=== PATIENT | male | born 1990 | race African-American/Black ===

== ENCOUNTER 2020-04-22 09:08 | Emergency (ER) | payer OTHER ==
[~2020-04-22] VITALS: Ht 182.9 cm; Wt 95.3 kg
[2020-04-22] MEDS ORDERED: LIDOCAINE 1% SDV 5ML VIAL DILUENT ONE (10:30)
[2020-04-22] MEDS ORDERED: AZITHROMYCIN 250MG TABLET PO ONE (10:30)
[2020-04-22] MEDS ORDERED: cefTRIAXone SOD 250MG VIAL (J0696 PER 250MG) IM ONE (10:30)
[2020-04-22 10:47] VITALS: BP 132/77
[2020-04-22 11:37] LABS: CHLAMYDIA DNA AMPLIFICATION NEGATIVE (NEGATIVE); GC DNA AMPLIFICATION NEGATIVE (NEGATIVE)
== END 2020-04-22 11:14 | disposition home or self-care (01) ==
LOC: M ED 09:08
DX: Z20.2 Contact with and (suspected) exposure to infections with a predominantly sexual mode of transmission (principal)
CPT/HCPCS: 81001; 87661; 96372; 99283; J0696

== ENCOUNTER 2021-03-23 11:24 | Emergency (ER) | payer OTHER ==
[~2021-03-23] VITALS: Ht 182.9 cm; Wt 93.3 kg
[2021-03-23 14:03] LABS: CHLAMYDIA DNA AMPLIFICATION NEGATIVE (NEGATIVE); GC DNA AMPLIFICATION NEGATIVE (NEGATIVE)
[2021-03-23 14:29] VITALS: BP 121/72
== END 2021-03-23 14:31 | disposition home or self-care (01) ==
LOC: M ED 11:24
DX: Z11.3 Encounter for screening for infections with a predominantly sexual mode of transmission (principal)